=== PATIENT | male | born 2000 | race Caucasian/White ===

== ENCOUNTER 2021-09-28 09:37 | Observation (INO) | payer OTHER ==
[~2021-09-28] VITALS: Ht 177.8 cm; Wt 72.2 kg
[2021-09-28 12:02] LABS: BASO # 0.1 10^3/uL (0.0-0.2); BASO % 0.4 % (0.0-1.0); EOS % 0.3 % (0.0-3.0); HEMATOCRIT 46.2 % (42.0-52.0); HEMOGLOBIN 15.8 g/dl (13.5-17.5); LYMPH # 2.5 10^3/uL (1.5-5.0); LYMPH % 20.5 % (24.0-44.0); MEAN CORPUSCULAR HEMOGLOBIN 31.3 pg (27.0-33.0); MEAN CORPUSCULAR HGB CONC 34.2 g/dl (32.0-36.5); MEAN CORPUSCULAR VOLUME 91.7 fl (80.0-96.0); MONO # 0.6 10^3/uL (0.0-0.8); NEUTROPHILS # 9.1 10^3/uL (1.5-8.5); NEUTROPHILS % 73.5 % (36.0-66.0); PLATELET COUNT, AUTOMATED 249 10^3/uL (150-450); RED BLOOD COUNT 5.04 10^6/uL (4.30-6.10); WHITE BLOOD COUNT 12.4 10^3/uL (4.0-10.0)
[2021-09-28 12:31] LABS: FREE T4 0.97 NG/DL (0.78-1.33); THYROID STIMULATING HORMONE 1.32 uIU/ML (0.463-3.98)
[2021-09-28 14:32] LABS: CK-MB VALUE MASS 2.5 NG/ML (<3.6); MB/CK RELATIVE INDEX 1.46 (< OR =4)
[2021-09-28 15:43] LABS: CK-MB VALUE MASS 2.1 NG/ML (<3.6); MB/CK RELATIVE INDEX 1.29 (< OR =4)
[2021-09-28] MEDS ORDERED: ASPIRIN 81 MG CHEW TABLET PO ONE (16:10)
[2021-09-28] MEDS ORDERED: ISOVUE-370 76% 100ML VIAL As Ordered ONE (16:18)
[2021-09-28 17:31] LABS: RSV AMPLIFICATION NEGATIVE (NEGATIVE)
[2021-09-28 17:35] LABS: CK-MB VALUE MASS 2.1 NG/ML (<3.6); MB/CK RELATIVE INDEX 1.41 (< OR =4)
[2021-09-28] MEDS ORDERED: THERTAB52 PO (18:36)
[2021-09-28] MEDS ORDERED: IBUP-1720 PO (18:36)
[2021-09-28] MEDS ORDERED: HOME MED LIST COMPLETE! XX SCH (18:40)
[2021-09-29 14:11] VITALS: BP 125/66
== END 2021-09-29 14:30 | disposition home or self-care (01) ==
LOC: M ED 09:37 → M ED INP 09:38 → ENRESERV 22:01
PROVIDERS: ADMIT Internal Medicine; ATTEND Internal Medicine
DX: R07.89 Other chest pain (principal); R74.8 Abnormal levels of other serum enzymes; R00.1 Bradycardia, unspecified; R21 Rash and other nonspecific skin eruption; F17.290 Nicotine dependence, other tobacco product, uncomplicated; Z82.49 Family history of ischemic heart disease and other diseases of the circulatory system
CPT/HCPCS: 36415; 71046; 71275; 80047; 80307; 82550; 82553; 84439; 84443; 84484; 85025; 85379; 87631; 93005; 93041; 93306; 94760; 99285; Q9967

== ENCOUNTER → 2022-02-02 | Outpatient (CLI) | payer OTHER ==
[~2022-02-02] MED LIST: IBUP-1720 PO; THERTAB52 PO
== END ==
LOC: M CARPUL 13:06
PROVIDERS: ATTEND Physician Assistant
DX: R06.00 Dyspnea, unspecified (principal)

== ENCOUNTER → 2022-03-14 | Outpatient (CLI) | payer OTHER ==
[~2022-03-14] MED LIST changes: +METHACHOLINE KIT INH ONE
== END ==
LOC: M CARPUL 13:55
PROVIDERS: ATTEND Physician Assistant
DX: R07.89 Other chest pain (principal)
CPT/HCPCS: 94070; J7674